=== PATIENT | female | born 1985 | race Caucasian/White ===

== ENCOUNTER 2022-05-12 19:08 | Emergency (ER) | payer OTHER ==
[~2022-05-12] VITALS: Ht 165.1 cm; Wt 93.0 kg
[2022-05-12 19:15] VITALS: BP 125/77
[2022-05-12] MEDS ORDERED: ACETAMINOPHEN EXTRA STRENGTH 500 MG TAB PO ONE (19:45)
--- NOTE | 2022-05-12 19:50 | NUR ---
Dr. Canales examining patient.
--- NOTE | 2022-05-12 20:02 | NUR ---
PT RETURN FROM CT
[2022-05-12 20:58] VITALS: BP 125/77
--- NOTE | 2022-05-12 20:58 | NUR ---
Patient discharged with v/s stable. Written and verbal after care instructions given and explained. Patient verbalized understanding. Ambulatory with steady gait. All questions addressed prior to discharge. Advised to follow up with PMD.
== END 2022-05-12 20:58 | disposition home or self-care (01) ==
LOC: MED 19:08
DX: S09.90XA Unspecified injury of head, initial encounter (principal); W18.30XA Fall on same level, unspecified, initial encounter; Y93.89 Activity, other specified; Y92.89 Other specified places as the place of occurrence of the external cause; Y99.8 Other external cause status
CPT/HCPCS: 70450; 81025; 99284

== ENCOUNTER 2023-01-02 10:23 | Day surgery (SDC) | payer OTHER ==
[~2023-01-02] VITALS: Ht 167.6 cm; Wt 77.1 kg
[2023-01-02] MEDS ORDERED: fentaNYL citrate 0.05 MG/ML VIAL ONE (11:23)
[2023-01-02] MEDS ORDERED: diphenhydrAMINE 50 MG/ML VIAL ONE (11:23)
[2023-01-02] MEDS ORDERED: MIDAZOLAM 5 MG/5 ML VIAL ONE (11:24)
[2023-01-02] MEDS ORDERED: diphenhydrAMINE 50 MG/ML VIAL IVP ONE (12:35)
[2023-01-02] MEDS ORDERED: MIDAZOLAM 5 MG/5 ML VIAL IV ONE (12:35)
[2023-01-02] MEDS ORDERED: fentaNYL citrate 0.05 MG/ML VIAL IVP ONE (12:35)
== END 2023-01-02 13:10 | disposition home or self-care (01) ==
LOC: MOR 10:23 → MMU 10:33 → MOR 13:10
PROVIDERS: ATTEND Internal Medicine Gastroenterology
DX: D50.9 Iron deficiency anemia, unspecified (principal); K29.50 Unspecified chronic gastritis without bleeding; B96.81 Helicobacter pylori [H. pylori] as the cause of diseases classified elsewhere; Z98.84 Bariatric surgery status
CPT/HCPCS: 43239; 45378; J1200; J2250; J3010; 88305; 88312; 88313; 88342